=== PATIENT | male | born 2000 | race Caucasian/White ===

== ENCOUNTER → 2019-10-30 | Outpatient (CLI) | payer BC, OTHER ==
[~2019-10-30] MED LIST: AC500T PO; AMIT25TA9 PO; DCS100C PO; HYOS0.1217 PO; NAPR1TAB21 PO; ONDA8TAB6 PO; PNT40TEC PO; POLY17PO23 PO; SCR1T1 PO
--- NOTE | 2019-10-30 15:34 | Diagnostic Imaging Report ---
INDICATION: Rolled foot playing basketball eight days ago with continued pain and bruising. TECHNIQUE: 3 views of the left foot. CORRELATION STUDY: None. FINDINGS: There is a transverse, relatively nondisplaced fracture of the proximal fifth metatarsal. Alignment appears to be anatomic. Remaining osseous structures are otherwise intact. Patient has soft tissue swelling along the lateral aspect of foot. IMPRESSION: 1. Relatively nondisplaced tuberosity avulsion fracture at the base of the fifth metatarsal. Dictated by: Dictated on workstation # [id number]
== END ==
LOC: RAD 14:26
PROVIDERS: ATTEND Nurse Practitioner Family
DX: S92.355A Nondisplaced fracture of fifth metatarsal bone, left foot, initial encounter for closed fracture (principal); Y93.67 Activity, basketball; X58.XXXA Exposure to other specified factors, initial encounter
CPT/HCPCS: 73630

== ENCOUNTER 2021-05-03 21:20 | Emergency (ER) | payer BC ==
[~2021-05-03] VITALS: Ht 175.2 cm; Wt 67.8 kg
[2021-05-03] MEDS ORDERED: NS IV 1000 ML 1,000 ML IV SCH (22:15)
[2021-05-03 22:17] LABS: BILIRUBIN,URINE NEGATIVE (NEGATIVE); CLARITY,URINE CLEAR; COLOR,URINE YELLOW; GLUCOSE, URINE (UA) NEGATIVE (NEGATIVE); KETONES,URINE NEGATIVE (NEGATIVE); LEUKOCYTE ESTERASE ,URINE NEGATIVE (NEGATIVE); NITRITE,URINE NEGATIVE (NEGATIVE); PROTEIN,URINE NEGATIVE (NEGATIVE)
[2021-05-03 22:23] LABS: BASOPHILS # (AUTO) 0.1 10^3/uL (0.0-0.1); BASOPHILS % (AUTO) 1 % (0-10); EOSINOPHILS # (AUTO) 0.5 10^3/uL (0.0-0.3); EOSINOPHILS % (AUTO) 4 % (0-10); HEMATOCRIT 41 % (40-54); HEMOGLOBIN 14.7 g/dL (13.3-17.7); LYMPHOCYTES # (AUTO) 3.3 10^3/uL (1.0-4.0); LYMPHOCYTES % (AUTO) 26 % (12-44); MEAN CORPUSCULAR HEMOGLOBIN 31 pg (25-34); MEAN CORPUSCULAR HGB CONC 36 g/dL (32-36); MEAN CORPUSCULAR VOLUME 86 fL (80-99); MEAN PLATELET VOLUME 9.7 fL (9.0-12.2); MONOCYTES # (AUTO) 0.9 10^3/uL (0.0-1.0); MONOCYTES % (AUTO) 7 % (0-12); NEUTROPHILS # (AUTO) 8.2 10^3/uL (1.8-7.8); NEUTROPHILS % (AUTO) 63 % (42-75); PLATELET COUNT 299 10^3/uL (130-400)
--- NOTE | 2021-05-03 22:23 | ED Back Pain ---
General Chief Complaint: Back Problems Stated Complaint: LOWER BACK/LEGS SPASMS Nursing Triage Note: Pt ambulatory into ER with complaint of Leg Cramping/Lower Back Cramping x4 hours. Pt states that he was sitting watching football when it started. Denies recent trauma. Pt denies it being pain, but says its an annoying cramping. Pt denies having any other complaints. (LETHA HANDLEY) History of Present Illness Date Seen by Provider: May 03, 2021 Time Seen by Provider: 21:30 Initial Comments 20-year-old male presents with muscle spasms to his legs. Patient reports they have been present for approximately 4 hours. He worked until approximately 1400 today and then came home and was sitting watching football. He had approximately 5-6 beers and then when getting ready for bed he noticed shaking in his leg muscles. He denies pain at the present time. He had minimal water intake today, denies any illicit drug use or stimulants. He does not exercise regularly or participate in aggressive cardio work outs. Location: Other (upper legs) Timing/Duration: 1-3 Hours Pain/Injury Location: Lower Extremity Method of Injury: Unknown Associated Symptoms: muscle spasms; No weakness, No numbness in legs/feet, No tingling in legs/feet, No sensory/motor loss, No lower back pain, No loss of bladder control, No loss of bowel control (LETHA HANDLEY) Allergies and Home Medications Allergies Coded Allergies: No Known Drug Allergies (Unverified , 03/05/13) Patient Home Medication List Home Medication List Reviewed: Yes (LETHA HANDLEY) Amitriptyline Hcl (Elavil Tablet) 25 Mg Tab, 25 MG PO HS, (Reported) Entered as Reported by: TAE PETERSON on 07/30/14 1618 Hyoscyamine Sulfate (Hyoscyamine Sulfate 0.125 Mg) 0.125 Mg/Tab Tab.rapdis, 0.125 MG PO Q6H PRN for SPASMS Prescribed by: RENEE A COLTRIN on 06/14/13 1304 Pantoprazole Sodium (Protonix) 40 Mg Tablet.dr, 40 TAB PO BID Prescribed by: RENEE A COLTRIN on 06/14/13 1304 Polyethylene Glycol (Miralax 17 Gm Packet) 17 Gm Pack, 17 GM PO BID Prescribed by: RENEE A COLTRIN on 06/14/13 9371 Review of Systems Constitutional: no symptoms reported, see HPI Respiratory: no symptoms reported, see HPI Musculoskeletal: No back pain; muscle cramps, muscle twitching (LETHA HANDLEY) All Other Systems Reviewed Negative Unless Noted: Yes (LETHA HANDLEY) Past Thrcexq-Vpbfbj-Pkjlnc Hx Patient Social History Tobacco Use?: No Use of E-Cig and/or Vaping dev: Yes E-Cig or Vaping type used: Nicotine Use of E-Cig and/or Vaping Ajay: Current Everyday User Substance use?: No Alcohol Use?: Yes Alcohol type: Beer Alcohol Frequency: Daily Pt feels they are or have been: No (LETHA HANDLEY) Immunizations Up To Date Tetanus Booster (TDap): Less than 5yrs PED Vaccines UTD: Yes Influenza Vaccine Up-to-Date: No; Not Current (LETHA HANDLEY) Past Medical History Reproductive Disorders: No Sexually Transmitted Disease: No HIV/AIDS: No Kidney Stones Ulcer, Irritable Bowel Chronic Back Pain (LETHA HANDLEY) Family Medical History Reviewed Nursing Family Hx (LETHA HANDLEY) Chest pain 03 FATHER (CHEST PAIN) Family history: Cardiovascular disease 03 MOTHER (MITRAL VALVE PROLAPSE.) Family history: Gastrointestinal disease 09 BROTHER, Onset:Childhood (HERNIA REPAIR WHEN HE WAS 18 MONTHS. ) Seizure disorder 09 SISTER (SISTER HAD SEIZURE WHEN SHE WAS BORN. ) No Family History of: Addy's disease Alcoholism Aphasia Cancer Cancer of colon Cataract Congenital heart disease Congestive heart failure Cystic fibrosis Dementia Dysphagia Family history: Alzheimer's disease Family history: Arthritis Family history: Asthma Family history: Breast disease Family history: Coronary thrombosis Family history: Diabetes mellitus Family history: Glaucoma Family history: Hypertension Family history: Osteoporosis Family history: Thyroid disorder Headache Hearing loss Heart disease Hereditary disease History of - anemia History of - respiratory disease History of drug abuse Human immunodeficiency virus (HIV) seropositivity Hypercholesterolemia Infertile Kidney disease Myocardial infarction Parkinson's disease Prostate cancer Psychotic disorder Stroke Tuberculosis Visual impairment Heart Disease, Cancer (LETHA HANDLEY) Physical Exam Vital Signs Vital Signs - First Documented 05/03/21 21:24 Temp 36.7 Pulse 130 Resp 20 B/P (MAP) 156/104 (121) Pulse Ox 96 O2 Delivery Room Air (CHARLES,SABA K DO) Vital Signs Capillary Refill : Less Than 3 Seconds (LETHA HANDLEYP) Height, Weight, BMI Height: 5'7" Weight: 120lbs. 6.0oz. [id number]; 22.00 BMI Method: General Appearance: No Apparent Distress, WD/WN HEENT: PERRL/EOMI, TMs Normal, Normal ENT Inspection, Pharynx Normal Neck: Full Range of Motion, Normal Inspection, Non Tender, Supple Cardiovascular: Regular Rate, Rhythm, No Edema, No Murmur, Normal Peripheral Pulses Respiratory: Chest Non Tender, Lungs Clear, Normal Breath Sounds Gastrointestinal: Normal Bowel Sounds, Non Tender, Soft Back: Normal Inspection, No CVA Tenderness, No Vertebral Tenderness; No Muscle Spasm, No Vertebral Tenderness; Other (Full range of motion to the lumbar spine, power V/V L4-S1. Steady gait when ambulating. Muscle spasms when toe and heel walking.) Neurologic/Psychiatric: Alert, Oriented x3, No Motor/Sensory Deficits, Normal Mood/Affect Skin: Normal Color, Warm/Dry (EMMANUELLELETHA CRUZ) Progress/Results/Core Measures Results/Orders Lab Results Laboratory Tests Test 05/03/21 22:09 05/03/21 22:16 05/03/21 23:01 Range/Units Urine Color YELLOW Urine Clarity CLEAR Urine pH 6.0 5-9 Urine Specific [place] 1.010 L 1.016-1.022 Urine Protein NEGATIVE NEGATIVE Urine Glucose (UA) NEGATIVE NEGATIVE Urine Ketones NEGATIVE NEGATIVE Urine Nitrite NEGATIVE NEGATIVE Urine Bilirubin NEGATIVE NEGATIVE Urine Urobilinogen 0.2 < = 1.0 MG/DL Urine Leukocyte Esterase NEGATIVE NEGATIVE Urine RBC (Auto) TRACE-I H NEGATIVE Urine RBC NONE /HPF Urine WBC NONE /HPF Urine Squamous Epithelial Cells NONE /HPF Urine Renal Epithelial Cells NONE /HPF Urine Crystals NONE /LPF Urine Bacteria NEGATIVE /HPF Urine Casts NONE /LPF Urine Mucus NEGATIVE /LPF Urine Culture Indicated NO Urine Opiates Screen NEGATIVE NEGATIVE Urine Oxycodone Screen NEGATIVE NEGATIVE Urine Methadone Screen NEGATIVE NEGATIVE Urine Propoxyphene Screen NEGATIVE NEGATIVE Urine Barbiturates Screen NEGATIVE NEGATIVE Ur Tricyclic Antidepressants Screen NEGATIVE NEGATIVE Urine Phencyclidine Screen NEGATIVE NEGATIVE Urine Amphetamines Screen NEGATIVE NEGATIVE Urine Methamphetamines Screen NEGATIVE NEGATIVE Urine Benzodiazepines Screen NEGATIVE NEGATIVE Urine Cocaine Screen NEGATIVE NEGATIVE Urine Cannabinoids Screen NEGATIVE NEGATIVE White Blood Count 13.0 H 4.3-11.0 10^3/uL Red Blood Count 4.75 4.30-5.52 10^6/uL Hemoglobin 14.7 13.3-17.7 g/dL Hematocrit 41 40-54 % Mean Corpuscular Volume 86 80-99 fL Mean Corpuscular Hemoglobin 31 25-34 pg Mean Corpuscular Hemoglobin Concent 36 32-36 g/dL Red Cell Distribution Width 11.9 10.0-14.5 % Platelet Count 299 130-400 10^3/uL Mean Platelet Volume 9.7 9.0-12.2 fL Immature Granulocyte % (Auto) 0 % Neutrophils (%) (Auto) 63 42-75 % Lymphocytes (%) (Auto) 26 12-44 % Monocytes (%) (Auto) 7 0-12 % Eosinophils (%) (Auto) 4 0-10 % Basophils (%) (Auto) 1 0-10 % Neutrophils # (Auto) 8.2 H 1.8-7.8 10^3/uL Lymphocytes # (Auto) 3.3 1.0-4.0 10^3/uL Monocytes # (Auto) 0.9 0.0-1.0 10^3/uL Eosinophils # (Auto) 0.5 H 0.0-0.3 10^3/uL Basophils # (Auto) 0.1 0.0-0.1 10^3/uL Immature Granulocyte # (Auto) 0.0 0.0-0.1 10^3/uL Prothrombin Time 13.6 12.2-14.7 SEC INR Comment 1.0 0.8-1.4 Activated Partial Thromboplast Time 27 24-35 SEC Sodium Level 136 135-145 MMOL/L Potassium Level 3.7 3.6-5.0 MMOL/L Chloride Level 101 98-107 MMOL/L Carbon Dioxide Level 18 L 21-32 MMOL/L Anion Gap 17 H 5-14 MMOL/L Blood Urea Nitrogen 9 7-18 MG/DL Creatinine 0.86 0.60-1.30 MG/DL Estimat Glomerular Filtration Rate 111 BUN/Creatinine Ratio 10 Glucose Level 104 70-105 MG/DL Calcium Level 9.0 8.5-10.1 MG/DL Corrected Calcium 8.5-10.1 MG/DL Total Bilirubin 0.3 0.1-1.0 MG/DL Aspartate Amino Transf (AST/SGOT) 21 5-34 U/L Alanine Aminotransferase (ALT/SGPT) 15 0-55 U/L Alkaline Phosphatase 69 40-136 U/L Total Creatine Kinase 68 30-200 U/L Creatine Kinase MB 1.8 <6.6 NG/ML Myoglobin 39.0 10.0-92.0 NG/ML Total Protein 7.7 6.4-8.2 GM/DL Albumin 4.8 H 3.2-4.5 GM/DL Serum Alcohol 199 H <10 MG/DL TSH [place] Testing 3.55 0.35-4.94 UIU/ML (CHARLESSABA Valverde ) Vital Signs/I&O 05/03/21 05/03/21 21:24 23:52 Temp 36.7 Pulse 130 73 Resp 20 18 B/P (MAP) 156/104 (121) 120/76 Pulse Ox 96 99 O2 Delivery Room Air Room Air (SABA SOTO DO) Blood Pressure Mean: 121 Progress Progress Note : Time: 21:30 Progress Note Patient seen and evaluated, will obtain labs, normal saline 1 L per IV. 2229 discussed lab results. long counseling session with patient and agreeable to his father remaining in the room. Blood Alcohol 2.5 times above the legal limit. Patient admits to drinking alcohol daily, blacks out approx 1 time a week. Has issues in relationship, related to alcohol. Has never been abusive and maintains employment. Is engaged and has 18 month old daughter. Reports his mom was killed in MVA, May 2020, has made drinking a daily occurrence, since then. Does not feel he is addicted to drinking and only drinks beer, but can't remember the last night he hasn't had beer. Reports 1-2 leading to 5-6 or more. Discussed Rehab, inpatient/outpatient and AA. He will discuss with his dad and fiance, since acutely intoxicated tonight, he needs to make these decisions when sober. Drank 2 glasses of pedialyte. All questions answered and support carlito bergman. Discussed addictions and not stopping, without medical monitoring or he could have seizures and other withdrawal effects. Father will drive him home. Muscle cramping has improved. Ambulated to bathroom, no cramping and steady gait. D/C instructions and return precautions reviewed. (LETHA HANDLEY) Departure Impression Primary Impression: Muscle spasms of both lower extremities Additional Impressions: Acute alcohol intoxication Qualified Codes: F10.920 - Alcohol use, unspecified with intoxication, uncomplicated Alcohol addiction Qualified Codes: F10.29 - Alcohol dependence with unspecified alcohol- induced disorder Disposition: 01 HOME, SELF-CARE Condition: Stable Departure-Patient Inst. Decision time for Depature: 23:00 (LETHA HANDLEY) Referrals: DERIAN JANE DO (PCP/Family) Primary Care Physician Patient Instructions: Alcohol Use Disorder (DC), Alcohol Withdrawal (DC) Add. Discharge Instructions: Consider AA or inpatient alcohol rehab. AA options in [place] and through [facility]. Increase water intake, slowly cut back on alcohol consumption, abrupt withdrawal will have side effects. Follow up with your Primary Care Provider. Do NOT drive a car, when consuming alcohol. Return to Emergency Dept for new, urgent healthcare needs. All discharge instructions reviewed with patient and/or family. Voiced understanding. ATTENDING PHYSICIAN NOTE: I WAS PHYSICALLY PRESENT ER PHYSICIAN WHEN THIS PATIENT WAS IN ER, BUT I WAS NOT INVOLVED IN ANY DECISION MAKING OR ANY CARE OF THIS PATIENT. (SABA SOTO DO) Copy Copies To 1: DERIAN JANE AMY ARNP May 03, 2021 22:23 SABA SOTO DO May 08, 2021 05:30
[2021-05-03 22:26] LABS: BACTERIA,URINE NEGATIVE /HPF
[2021-05-03 22:31] LABS: AMPHETAMINE SCREEN, URINE NEGATIVE (NEGATIVE); BARBITURATE SCREEN URINE NEGATIVE (NEGATIVE); BENZODIAZEPINES SCREEN URINE NEGATIVE (NEGATIVE); CANNABINOID SCREEN, URINE NEGATIVE (NEGATIVE); COCAINE SCREEN URINE NEGATIVE (NEGATIVE); METHADONE STAT NEGATIVE (NEGATIVE); METHAMPHETAMINE SCREEN URINE S NEGATIVE (NEGATIVE); OPIATE SCREEN URINE NEGATIVE (NEGATIVE); OXYCODONE STAT NEGATIVE (NEGATIVE); PROPOXYPHENE STAT NEGATIVE (NEGATIVE); TRICYCLIC ANTIDEPRESSANTS SCRE NEGATIVE (NEGATIVE)
[2021-05-03 22:38] LABS: ALBUMIN 4.8 GM/DL (3.2-4.5); CHLORIDE 101 MMOL/L (98-107); POTASSIUM 3.7 MMOL/L (3.6-5.0); SODIUM 136 MMOL/L (135-145)
[2021-05-03 22:39] LABS: PROTHROMBIN TIME PATIENT 13.6 SEC (12.2-14.7)
[2021-05-03 22:40] LABS: GLUCOSE 104 MG/DL (70-105)
[2021-05-03 22:41] LABS: CARBON DIOXIDE 18 MMOL/L (21-32); TOTAL PROTEIN 7.7 GM/DL (6.4-8.2)
[2021-05-03 22:42] LABS: BILIRUBIN,TOTAL 0.3 MG/DL (0.1-1.0)
[2021-05-03 22:44] LABS: ALKALINE PHOSPHATASE 69 U/L (40-136); CREATININE SERUM 0.86 MG/DL (0.60-1.30); GFR ESTIMATED 111
[2021-05-03 22:45] LABS: BUN/CREATININE RATIO 10
[2021-05-03 22:47] LABS: ALANINE AMINOTRANSFERASE 15 U/L (0-55); CREATINE KINASE 68 U/L (30-200)
[2021-05-03 22:54] LABS: CREATINE KINASE MB 1.8 NG/ML (<6.6)
[2021-05-03 23:52] VITALS: BP 120/76
== END 2021-05-03 23:50 | disposition home or self-care (01) ==
LOC: EDUNIT# 21:20 → ER 21:21
DX: M62.838 Other muscle spasm (principal); F10.229 Alcohol dependence with intoxication, unspecified; F17.200 Nicotine dependence, unspecified, uncomplicated
CPT/HCPCS: 80053; 80306; 81000; 82550; 82553; 83874; 84443; 85025; 85610; 85730; 93005; 99284; G0480; 36415; 80320

== ENCOUNTER 2021-11-15 18:28 | Emergency (ER) | payer BC ==
[~2021-11-15] VITALS: Ht 175.2 cm; Wt 77.1 kg
[2021-11-15 18:35] VITALS: BP 141/87
[2021-11-15] MEDS ORDERED: NS IV 1000 ML 1,000 ML IV STA (18:45)
[2021-11-15] MEDS ORDERED: morphine INJ 10 MG/ML 1ML (SYR OR VIAL) IV STA (18:45)
[2021-11-15] MEDS ORDERED: ASPIRIN 81 MG CHEW (CHILDREN'S ASA) PO ONE (18:45)
--- NOTE | 2021-11-15 18:50 | ED Chest Pain ---
General Stated Complaint: CP/SHAKY Source: patient Exam Limitations: no limitations History of Present Illness Date Seen by Provider: November 15, 2021 Time Seen by Provider: 18:48 Initial Comments Patient is a 21-year-old male who presents ED with left sided chest pain. Described as sharp started around 9-10 o'clock this morning. Denies of any radiation. Pain has been constant rates 6 out of 10. Denies history of similar symptoms in past. Daily drinker but did drink several beverages of alcohol beverages last night. Drinks 6-10 beverages (beer) daily. Patient with history of mild tremoring in the past. He did vomit today. He has associated shortness of breath without cough. No abdominal pain. No worsening pain with eating. D enies any recent travels, surgeries, leg swelling, family history of sudden cardiac . Denies headache, dizziness, fever, chills, body aches. Patient has some mild tenderness on palpation of the chest. No worsening pain with deep inspiration. Denies of any recent URI symptoms Allergies and Home Medications Allergies Coded Allergies: No Known Drug Allergies (Unverified , 03/05/13) Patient Home Medication List Home Medication List Reviewed: Yes Amitriptyline Hcl (Elavil Tablet) 25 Mg Tab, 25 MG PO HS, (Reported) Entered as Reported by: TAE PETERSON on 07/30/14 1618 Hyoscyamine Sulfate (Hyoscyamine Sulfate 0.125 Mg) 0.125 Mg/Tab Tab.rapdis, 0.125 MG PO Q6H PRN for SPASMS Prescribed by: RENEE A COLTRIN on 06/14/13 1304 Pantoprazole Sodium (Protonix) 40 Mg Tablet.dr, 40 TAB PO BID Prescribed by: RENEE A COLTRIN on 06/14/13 1304 Polyethylene Glycol (Miralax 17 Gm Packet) 17 Gm Pack, 17 GM PO BID Prescribed by: RENEE A COLTRIN on 06/14/13 1304 Review of Systems Review of Systems Constitutional: No chills, No diaphoresis EENTM: No Double Vision, No Eye Pain Respiratory: Denies Cough; Shortness of Air Cardiovascular: Chest Pain Gastrointestinal: Denies Abdomen Distended, Denies Abdominal Pain, Denies Diarrhea, Denies Nausea, Denies Vomiting Genitourinary: Denies Burning, Denies Discharge Musculoskeletal: No back pain, No joint pain Skin: No change in color, No change in hair/nails All Other Systems Reviewed Negative Unless Noted: Yes Past Sxkcgki-Mxprgr-Vawvwd Hx Immunizations Up To Date Tetanus Booster (TDap): Less than 5yrs PED Vaccines UTD: Yes Past Medical History Reproductive Disorders: No Sexually Transmitted Disease: No HIV/AIDS: No Kidney Stones Ulcer, Irritable Bowel Chronic Back Pain Family Medical History Chest pain 03 FATHER (CHEST PAIN) Family history: Cardiovascular disease 03 MOTHER (MITRAL VALVE PROLAPSE.) Family history: Gastrointestinal disease 09 BROTHER, Onset:Childhood (HERNIA REPAIR WHEN HE WAS 18 MONTHS. ) Seizure disorder 09 SISTER (SISTER HAD SEIZURE WHEN SHE WAS BORN. ) No Family History of: Westbrook's disease Alcoholism Aphasia Cancer Cancer of colon Cataract Congenital heart disease Congestive heart failure Cystic fibrosis Dementia Dysphagia Family history: Alzheimer's disease Family history: Arthritis Family history: Asthma Family history: Breast disease Family history: Coronary thrombosis Family history: Diabetes mellitus Family history: Glaucoma Family history: Hypertension Family history: Osteoporosis Family history: Thyroid disorder Headache Hearing loss Heart disease Hereditary disease History of - anemia History of - respiratory disease History of drug abuse Human immunodeficiency virus (HIV) seropositivity Hypercholesterolemia Infertile Kidney disease Myocardial infarction Parkinson's disease Prostate cancer Psychotic disorder Stroke Tuberculosis Visual impairment Heart Disease, Cancer Physical Exam Vital Signs Vital Signs - First Documented 11/15/21 18:35 Temp 36.6 Pulse 98 Resp 20 B/P (MAP) 141/87 (105) Pulse Ox 98 O2 Delivery Room Air Capillary Refill : Height, Weight, BMI Height: 5'7" Weight: 120lbs. 6.0oz. 54.978337ml; 22.00 BMI Method: General Appearance: WD/WN, Mild Distress HEENT: PERRL/EOMI, TMs Normal, Normal ENT Inspection, Pharynx Normal Neck: Full Range of Motion, Normal Inspection, Non Tender, Supple Respiratory: Lungs Clear, Normal Breath Sounds, No Accessory Muscle Use, No Respiratory Distress, Other (Mild tenderness to the left lower anterior chest below the nipple line.) Cardiovascular: Regular Rate, Rhythm, No Edema, No Gallop, No JVD Gastrointestinal: Normal Bowel Sounds, No Organomegaly, No Pulsatile Mass, Non Tender Extremity: Normal Capillary Refill, Normal Inspection, Normal Range of Motion Neurologic/Psychiatric: Alert, Oriented x3, No Motor/Sensory Deficits, Normal Mood/Affect, cardiac monitor II-XII Norm as Tested Skin: Normal Color, Warm/Dry Progress/Results/Core Measures Results/Orders Lab Results Laboratory Tests Test 11/15/21 18:45 11/15/21 21:22 Range/Units White Blood Count 11.1 H 4.3-11.0 10^3/uL Red Blood Count 4.85 4.30-5.52 10^6/uL Hemoglobin 15.0 13.3-17.7 g/dL Hematocrit 42 40-54 % Mean Corpuscular Volume 87 80-99 fL Mean Corpuscular Hemoglobin 31 25-34 pg Mean Corpuscular Hemoglobin Concent 36 32-36 g/dL Red Cell Distribution Width 12.3 10.0-14.5 % Platelet Count 335 130-400 10^3/uL Mean Platelet Volume 9.5 9.0-12.2 fL Immature Granulocyte % (Auto) 0 % Neutrophils (%) (Auto) 71 42-75 % Lymphocytes (%) (Auto) 18 12-44 % Monocytes (%) (Auto) 10 0-12 % Eosinophils (%) (Auto) 1 0-10 % Basophils (%) (Auto) 1 0-10 % Neutrophils # (Auto) 7.9 H 1.8-7.8 10^3/uL Lymphocytes # (Auto) 2.0 1.0-4.0 10^3/uL Monocytes # (Auto) 1.1 H 0.0-1.0 10^3/uL Eosinophils # (Auto) 0.1 0.0-0.3 10^3/uL Basophils # (Auto) 0.1 0.0-0.1 10^3/uL Immature Granulocyte # (Auto) 0.0 0.0-0.1 10^3/uL Prothrombin Time 13.7 12.2-14.7 SEC INR Comment 1.0 0.8-1.4 Activated Partial Thromboplast Time 32 24-35 SEC D-Dimer 3.48 H 0.00-0.49 UG/ML Sodium Level 138 135-145 MMOL/L Potassium Level 4.8 3.6-5.0 MMOL/L Chloride Level 100 98-107 MMOL/L Carbon Dioxide Level 23 21-32 MMOL/L Anion Gap 15 H 5-14 MMOL/L Blood Urea Nitrogen 13 7-18 MG/DL Creatinine 0.77 0.60-1.30 MG/DL Estimat Glomerular Filtration Rate 129 BUN/Creatinine Ratio 17 Glucose Level 139 H 70-105 MG/DL Calcium Level 9.8 8.5-10.1 MG/DL Corrected Calcium 8.5-10.1 MG/DL Magnesium Level 2.1 1.6-2.4 MG/DL Total Bilirubin 0.6 0.1-1.0 MG/DL Aspartate Amino Transf (AST/SGOT) 30 5-34 U/L Alanine Aminotransferase (ALT/SGPT) 24 0-55 U/L Alkaline Phosphatase 75 40-136 U/L Myoglobin 36.6 10.0-92.0 NG/ML Troponin I < 0.028 <0.028 NG/ML Total Protein 8.2 6.4-8.2 GM/DL Albumin 5.2 H 3.2-4.5 GM/DL Lipase 12 8-78 U/L Urine Opiates Screen POSITIVE H NEGATIVE Urine Oxycodone Screen NEGATIVE NEGATIVE Urine Methadone Screen NEGATIVE NEGATIVE Urine Propoxyphene Screen NEGATIVE NEGATIVE Urine Barbiturates Screen NEGATIVE NEGATIVE Ur Tricyclic Antidepressants Screen NEGATIVE NEGATIVE Urine Phencyclidine Screen NEGATIVE NEGATIVE Urine Amphetamines Screen NEGATIVE NEGATIVE Urine Methamphetamines Screen NEGATIVE NEGATIVE Urine Benzodiazepines Screen NEGATIVE NEGATIVE Urine Cocaine Screen NEGATIVE NEGATIVE Urine Cannabinoids Screen NEGATIVE NEGATIVE My Orders Orders - MECCA VITALE PA Ekg Tracing (11/15/21 18:32) Cbc With Automated Diff (11/15/21 18:45) Magnesium (11/15/21 18:45) Chest 1 View, Ap/Pa Only (11/15/21 18:45) Ekg Tracing (11/15/21 18:45) Comprehensive Metabolic Panel (11/15/21 18:45) Myoglobin Serum (11/15/21 18:45) Protime With Inr (11/15/21 18:45) Partial Thromboplastin Time (11/15/21 18:45) O2 (11/15/21 18:45) Ed Iv/Invasive Line Start (11/15/21 18:45) Lipase (11/15/21 18:45) Fibrin Degradation Products (11/15/21 18:45) Troponin I Arvin (11/15/21 18:45) Aspirin Chewable Tablet (Baby Aspirin Ch (11/15/21 18:45) Morphine Injection (Morphine Injection (11/15/21 18:45) Ns Iv 1000 Ml (Sodium Chloride 0.9%) (11/15/21 18:45) Drug Screen Stat (Urine) (11/15/21 18:47) Ct Angio Chest W (11/15/21 19:54) Iohexol Injection (Omnipaque 350 Mg/Ml 1 (11/15/21 20:15) Received Contrast (Hold Metformin- Contr (11/15/21 20:15) Ns (Ivpb) (Sodium Chloride 0.9% Ivpb Bag (11/15/21 20:15) Ketorolac Injection (Toradol Injection) (11/15/21 22:00) Medications Given in ED Current Medications Medications Dose Ordered Sig/Chase Route Start Time Stop Time Status Last Admin Dose Admin Aspirin 324 mg ONCE ONCE PO 11/15/21 18:45 11/15/21 19:06 DC 11/15/21 19:10 324 MG Iohexol 100 ml ONCE ONCE IV 11/15/21 20:15 11/15/21 20:16 DC 11/15/21 20:13 76 ML Sodium Chloride 100 ml ONCE ONCE IV 11/15/21 20:15 11/15/21 20:16 DC 11/15/21 20:13 80 ML Vital Signs/I&O 11/15/21 18:35 Temp 36.6 Pulse 98 Resp 20 B/P (MAP) 141/87 (105) Pulse Ox 98 O2 Delivery Room Air Comment Sinus rhythm with sinus arrhythmia, 84 bpm, QRS duration 86 MS, QTC 388 ms Departure Communication (PCP) Patient with a history of EtOH abuse. Patient states he drinks 6-8 beers daily. Mild shakes with left-sided chest pain. EKG shows sinus rhythm with sinus arrhythmia. Initially on arrival he was tachycardic and reports shortness of breath. No family history of sudden cardiac . Patient troponin negative but elevated D-dimer 3.80. CT angio chest was negative for PE, pneumothorax, pneumonia. Patient lab work was otherwise reassuring. Patient was given Toradol and a liter of fluid with improvement of his pain. EKG without diffuse ST elevation suggesting pericarditis. No abnormal arrhythmia. Low risk for coronary artery disease. Denies any trauma. Did vomit today. Symptoms may be secondary to his alcohol. He denies drinking today. Denies history of withdrawal seizures or withdrawal from alcohol. Denies history of similar symptoms. Discussed all results with patient. Due to low heart score and currently asymptomatic patient can be follow-up outpatient . He has no epigastric or right upper quadrant tenderness suggesting acute cholecystitis or pancreatitis. Normal lipase, liver enzymes and bilirubin. Pain appears to be located left side of his ribs. Does have some mild tenderness suggesting possible pleurisy versus costochondritis however he has no pain with deep inspiration. Recommend continue monitoring his symptoms. If worsening chest pain to return back to ED. May consider outpatient follow-up with PCP for further evaluation. Did offer resources for alcohol detox outpatient [place]. If any worsening symptoms return back to ED for further evaluation.. Impression Primary Impression: Chest pain Disposition: HOME, SELF-CARE Condition: Stable Departure-Patient Inst. Decision time for Depature: 21:47 Referrals: DERIAN JANE DO (PCP/Family) Primary Care Physician Patient Instructions: Chest Pain, Adult ED Work/School Note: Work Release Form Date Seen in the Emergency Department: November 15, 2021 Return to Work: November 17, 2021 MECCA VITALE November 15, 2021 18:50
[2021-11-15 18:55] LABS: BASOPHILS # (AUTO) 0.1 10^3/uL (0.0-0.1); BASOPHILS % (AUTO) 1 % (0-10); EOSINOPHILS # (AUTO) 0.1 10^3/uL (0.0-0.3); EOSINOPHILS % (AUTO) 1 % (0-10); HEMATOCRIT 42 % (40-54); LYMPHOCYTES % (AUTO) 18 % (12-44); MEAN CORPUSCULAR HEMOGLOBIN 31 pg (25-34); MEAN CORPUSCULAR HGB CONC 36 g/dL (32-36); MEAN CORPUSCULAR VOLUME 87 fL (80-99); MEAN PLATELET VOLUME 9.5 fL (9.0-12.2); MONOCYTES # (AUTO) 1.1 10^3/uL (0.0-1.0); MONOCYTES % (AUTO) 10 % (0-12); NEUTROPHILS # (AUTO) 7.9 10^3/uL (1.8-7.8); NEUTROPHILS % (AUTO) 71 % (42-75); PLATELET COUNT 335 10^3/uL (130-400); WHITE BLOOD COUNT 11.1 10^3/uL (4.3-11.0)
[2021-11-15 19:06] LABS: ALBUMIN 5.2 GM/DL (3.2-4.5); CHLORIDE 100 MMOL/L (98-107); POTASSIUM 4.8 MMOL/L (3.6-5.0); SODIUM 138 MMOL/L (135-145)
[2021-11-15 19:07] LABS: CALCIUM 9.8 MG/DL (8.5-10.1)
[2021-11-15 19:09] LABS: GLUCOSE 139 MG/DL (70-105); TOTAL PROTEIN 8.2 GM/DL (6.4-8.2)
[2021-11-15 19:10] LABS: CARBON DIOXIDE 23 MMOL/L (21-32)
[2021-11-15 19:11] LABS: BILIRUBIN,TOTAL 0.6 MG/DL (0.1-1.0)
[2021-11-15 19:12] LABS: ALKALINE PHOSPHATASE 75 U/L (40-136)
[2021-11-15 19:13] LABS: CREATININE SERUM 0.77 MG/DL (0.60-1.30); GFR ESTIMATED 129
[2021-11-15 19:14] LABS: BUN/CREATININE RATIO 17
[2021-11-15 19:15] LABS: ALANINE AMINOTRANSFERASE 24 U/L (0-55); MAGNESIUM 2.1 MG/DL (1.6-2.4)
[2021-11-15 19:16] LABS: LIPASE 12 U/L (8-78); PROTHROMBIN TIME PATIENT 13.7 SEC (12.2-14.7)
--- NOTE | 2021-11-15 19:28 | Diagnostic Imaging Report ---
EXAMINATION: Chest 1 view. HISTORY: Chest pain. COMPARISON: None available. FINDINGS: Heart size and pulmonary vasculature are normal. The lungs are clear without consolidation, pleural effusion or pneumothorax. The osseous structures are intact. Multiple small radiopacities overlying the left shoulder and axilla. IMPRESSION: 1. No acute radiographic abnormality in the chest. 2. Multiple radiopacities overlying the left shoulder and axilla. Dictated by: Dictated on workstation # [id number]
[2021-11-15] MEDS ORDERED: IOHEXOL 350 MG/ML 100 ML (OMNIPAQUE 350) VIAL IV ONE (20:15)
[2021-11-15] MEDS ORDERED: HOLD METFORMIN - RECEIVED CONTRAST 20 ML VIAL IV SCH (20:15)
[2021-11-15] MEDS ORDERED: NS 100 ML (IVPB) BAG IV ONE (20:15)
--- NOTE | 2021-11-15 20:42 | Diagnostic Imaging Report ---
EXAMINATION: CT angiography of the chest. TECHNIQUE: Contrast enhanced thin section helical images were obtained through the chest with intravenous contrast timed for the optimal opacification of the arterial structures per CTA protocol. Post-processing, reconstructions and interpretation of angiographic images of the vessels was performed. 3D MIP reconstructions were performed and reviewed. All CT scans use one or more of the following dose optimizing techniques: automated exposure control, MA and/or KvP adjustment based on patient size and exam type or iterative reconstruction. HISTORY: Left side chest pain. COMPARISON: None available. FINDINGS: Vascular: No filling defects within the pulmonary arteries. Thoracic aorta is normal in caliber. Thyroid: The thyroid is normal. Mediastinum: Heart size is normal without significant pericardial effusion. No suspicious lymphadenopathy. Lungs and airways: The lungs are clear without consolidation, pleural effusion or pneumothorax. The airways are normal. Upper abdomen: The subphrenic structures are normal. Musculoskeletal: No suspicious osseous lesion or compression fracture. IMPRESSION: No findings of pulmonary embolus or other acute abnormality in the chest. Dictated by: Dictated on workstation # [id number]
[2021-11-15 21:36] LABS: AMPHETAMINE SCREEN, URINE NEGATIVE (NEGATIVE); BARBITURATE SCREEN URINE NEGATIVE (NEGATIVE); BENZODIAZEPINES SCREEN URINE NEGATIVE (NEGATIVE); CANNABINOID SCREEN, URINE NEGATIVE (NEGATIVE); COCAINE SCREEN URINE NEGATIVE (NEGATIVE); METHADONE STAT NEGATIVE (NEGATIVE); OPIATE SCREEN URINE POSITIVE (NEGATIVE); OXYCODONE STAT NEGATIVE (NEGATIVE); PROPOXYPHENE STAT NEGATIVE (NEGATIVE); TRICYCLIC ANTIDEPRESSANTS SCRE NEGATIVE (NEGATIVE)
[2021-11-15] MEDS ORDERED: KETOROLAC 30 MG/ML VIAL IVP ONE (22:00)
== END 2021-11-15 21:58 | disposition home or self-care (01) ==
LOC: EDUNIT# 18:28 → ER 18:29
DX: R07.89 Other chest pain (principal); I49.8 Other specified cardiac arrhythmias; F10.20 Alcohol dependence, uncomplicated; R79.89 Other specified abnormal findings of blood chemistry
CPT/HCPCS: 36415; 71045; 71275; 80053; 80306; 83690; 83735; 83874; 84484; 85025; 85379; 85610; 85730; 93005

== ENCOUNTER 2022-11-22 22:55 | Emergency (ER) | payer BC ==
[~2022-11-22] VITALS: Ht 175.3 cm; Wt 77.1 kg
--- NOTE | 2022-11-22 23:12 | ED Chest Pain ---
General Chief Complaint: Chest Wall Stated Complaint: CHEST PAIN/SOA Nursing Triage Note: PT AMB TO RM 3 W C/O CHEST DISCOMFORT AND SOA SX 1200 TODAY. PT A&OX4. Source: patient, old records Exam Limitations: no limitations History of Present Illness Date Seen by Provider: November 22, 2022 Time Seen by Provider: 22:59 Initial Comments This 22-year-old gentleman presents to the emergency room with complaints of a vague chest discomfort and palpitations described as "pounding heart. Symptoms started around noon. He states difficulty sleeping tonight. He would wake up with a gasp leg sensation. He was seen for something similar about a year ago. At that time he was drinking heavily on a daily basis. He now only drinks heavily on the weekends. He did drink heavily yesterday. He denies any cough or fever. He did vomit twice this morning. Allergies and Home Medications Allergies Coded Allergies: No Known Drug Allergies (Unverified , 03/05/13) Patient Home Medication List Home Medication List Reviewed: Yes Amitriptyline Hcl (Elavil Tablet) 25 Mg Tab, 25 MG PO HS, (Reported) Entered as Reported by: TAE PETERSON on 07/30/14 1618 Hyoscyamine Sulfate (Hyoscyamine Sulfate 0.125 Mg) 0.125 Mg/Tab Tab.rapdis, 0.125 MG PO Q6H PRN for SPASMS Prescribed by: RENEE BECKFORD on 06/14/13 1304 Pantoprazole Sodium (Protonix) 40 Mg Tablet.dr, 40 TAB PO BID Prescribed by: RENEE ORDAZTRIN on 06/14/13 1304 Polyethylene Glycol (Miralax 17 Gm Packet) 17 Gm Pack, 17 GM PO BID Prescribed by: RENEE Delacruz COLTRIN on 06/14/13 1304 Review of Systems Review of Systems Constitutional: no symptoms reported EENTM: No Symptoms Reported Respiratory: No Symptoms Reported Cardiovascular: See HPI Gastrointestinal: See HPI Genitourinary: No Symptoms Reported Musculoskeletal: no symptoms reported Skin: no symptoms reported Psychiatric/Neurological: See HPI Endocrine: No Symptoms Reported Hematologic/Lymphatic: No Symptoms Reported Past Yogrwlx-Uxkxxv-Kapznu Hx Patient Social History Tobacco Use?: No Use of E-Cig and/or Vaping dev: Yes E-Cig or Vaping type used: Nicotine Use of E-Cig and/or Vaping Ajay: Current Everyday User Substance use?: No Alcohol Use?: Yes Alcohol Frequency: Several times a month Immunizations Up To Date Tetanus Booster (TDap): Less than 5yrs PED Vaccines UTD: Yes Influenza Vaccine Up-to-Date: No; Not Current First/Initial COVID19 Vaccinat: NONE Second COVID19 Vaccination Baldemar: NONE Third COVID19 Vaccination Date: NONE COVID19 Vaccine Cardiac Cath Technologist: NONE Past Medical History Surgeries: No Respiratory: No Cardiac: No Neurological: No Reproductive Disorders: No Sexually Transmitted Disease: No HIV/AIDS: No Genitourinary: Yes Kidney Stones Gastrointestinal: No Ulcer, Irritable Bowel Musculoskeletal: Yes Chronic Back Pain Endocrine: No HEENT: No Cancer: No Psychosocial: No Family Medical History Chest pain 03 FATHER (CHEST PAIN) Family history: Cardiovascular disease 03 MOTHER (MITRAL VALVE PROLAPSE.) Family history: Gastrointestinal disease 09 BROTHER, Onset:Childhood (HERNIA REPAIR WHEN HE WAS 18 MONTHS. ) Seizure disorder 09 SISTER (SISTER HAD SEIZURE WHEN SHE WAS BORN. ) No Family History of: Forrest's disease Alcoholism Aphasia Cancer Cancer of colon Cataract Congenital heart disease Congestive heart failure Cystic fibrosis Dementia Dysphagia Family history: Alzheimer's disease Family history: Arthritis Family history: Asthma Family history: Breast disease Family history: Coronary thrombosis Family history: Diabetes mellitus Family history: Glaucoma Family history: Hypertension Family history: Osteoporosis Family history: Thyroid disorder Headache Hearing loss Heart disease Hereditary disease History of - anemia History of - respiratory disease History of drug abuse Human immunodeficiency virus (HIV) seropositivity Hypercholesterolemia Infertile Kidney disease Myocardial infarction Parkinson's disease Prostate cancer Psychotic disorder Stroke Tuberculosis Visual impairment Heart Disease, Cancer Physical Exam Vital Signs Vital Signs - First Documented 11/22/22 22:58 Temp 36.6 Pulse 78 Resp 20 B/P (MAP) 151/96 (114) Pulse Ox 100 O2 Delivery Room Air Capillary Refill : Less Than 3 Seconds Height, Weight, BMI Height: 5'7" Weight: 120lbs. 6.0oz. 54.809625pb; 25.00 BMI Method: General Appearance: No Apparent Distress, WD/WN, Thin HEENT: PERRL/EOMI, Normal ENT Inspection Neck: Normal Inspection; No JVD Respiratory: Chest Non Tender, Lungs Clear, Normal Breath Sounds, No Accessory Muscle Use Cardiovascular: Regular Rate, Rhythm, No Edema, No Murmur, Other (Normal sinus rhythm on monitoring tech by my interpretation) Gastrointestinal: Non Tender, Soft; No Distended Extremity: Normal Inspection, No Pedal Edema, Calf Tenderness (Right mid calf) Neurologic/Psychiatric: Alert, Oriented x3, No Motor/Sensory Deficits, Normal Mood/Affect Skin: Normal Color, Warm/Dry Progress/Results/Core Measures Results/Orders Lab Results Laboratory Tests Test 11/22/22 23:00 Range/Units White Blood Count 10.4 4.3-11.0 10^3/uL Red Blood Count 4.99 4.30-5.52 10^6/uL Hemoglobin 15.2 13.3-17.7 g/dL Hematocrit 43 40-54 % Mean Corpuscular Volume 86 80-99 fL Mean Corpuscular Hemoglobin 31 25-34 pg Mean Corpuscular Hemoglobin Concent 35 32-36 g/dL Red Cell Distribution Width 12.3 10.0-14.5 % Platelet Count 306 130-400 10^3/uL Mean Platelet Volume 9.9 9.0-12.2 fL Immature Granulocyte % (Auto) 0 % Neutrophils (%) (Auto) 61 42-75 % Lymphocytes (%) (Auto) 26 12-44 % Monocytes (%) (Auto) 10 0-12 % Eosinophils (%) (Auto) 3 0-10 % Basophils (%) (Auto) 1 0-10 % Neutrophils # (Auto) 6.3 1.8-7.8 10^3/uL Lymphocytes # (Auto) 2.7 1.0-4.0 10^3/uL Monocytes # (Auto) 1.0 0.0-1.0 10^3/uL Eosinophils # (Auto) 0.3 0.0-0.3 10^3/uL Basophils # (Auto) 0.1 0.0-0.1 10^3/uL Immature Granulocyte # (Auto) 0.0 0.0-0.1 10^3/uL Prothrombin Time 13.4 12.2-14.7 SEC INR Comment 1.0 0.8-1.4 Activated Partial Thromboplast Time 28 24-35 SEC D-Dimer < 0.27 0.00-0.49 UG/ML Sodium Level 139 135-145 MMOL/L Potassium Level 3.9 3.6-5.0 MMOL/L Chloride Level 101 98-107 MMOL/L Carbon Dioxide Level 23 21-32 MMOL/L Anion Gap 15 H 5-14 MMOL/L Blood Urea Nitrogen 7 7-18 MG/DL Creatinine 0.78 0.60-1.30 MG/DL Estimat Glomerular Filtration Rate 128 BUN/Creatinine Ratio 9 Glucose Level 84 70-105 MG/DL Calcium Level 10.1 8.5-10.1 MG/DL Corrected Calcium 8.5-10.1 MG/DL Magnesium Level 2.0 1.6-2.4 MG/DL Total Bilirubin 0.7 0.1-1.0 MG/DL Aspartate Amino Transf (AST/SGOT) 25 5-34 U/L Alanine Aminotransferase (ALT/SGPT) 18 0-55 U/L Alkaline Phosphatase 67 40-136 U/L Myoglobin 28.6 10.0-92.0 NG/ML Troponin I < 0.028 <0.028 NG/ML Total Protein 8.1 6.4-8.2 GM/DL Albumin 5.1 H 3.2-4.5 GM/DL Serum Alcohol < 10 <10 MG/DL My Orders Orders - MELISSA WHEATLEY MD Cbc With Automated Diff (11/22/22 23:08) Magnesium (11/22/22 23:08) Chest 1 View, Ap/Pa Only (11/22/22 23:08) Ekg Tracing (11/22/22 23:08) Comprehensive Metabolic Panel (11/22/22 23:08) Myoglobin Serum (11/22/22 23:08) Protime With Inr (11/22/22 23:08) Partial Thromboplastin Time (11/22/22 23:08) Monitor-Rhythm Ecg Trace Only (11/22/22 23:08) Ed Iv/Invasive Line Start (11/22/22 23:08) Fibrin Degradation Products (11/22/22 23:08) Troponin I Frontier (11/22/22 23:08) Alcohol (11/22/22 23:08) Vital Signs/I&O 11/22/22 11/23/22 22:58 00:06 Temp 36.6 Pulse 78 56 Resp 20 18 B/P (MAP) 151/96 (114) 121/96 Pulse Ox 100 100 O2 Delivery Room Air Room Air Blood Pressure Mean: 114 Progress Progress Note : Progress Note Patient's exam was grossly unremarkable. He did note some mild tenderness in the right mid calf. Labs were obtained including CBC, CMP, troponin, serum alcohol, and D-dimer. These were all reviewed and interpreted by me as unremarkable. EKG was interpreted as normal. Chest x-ray was also reviewed and interpreted by me is unremarkable. Radiologist's report not yet available. Initial ECG Impression Date: November 22, 2022 Initial ECG Impression Time: 23:02 Initial ECG Rate: 73 Initial ECG Rhythm: Normal Sinus Initial ECG Intervals: Normal Initial ECG Impression: Normal Comment Sinus rhythm with variable rate. No ST elevation or depression. No abnormal intervals or axis deviation. Able rate likely secondary to respiratory pattern in this young adult. Diagnostic Imaging Diagonstic Imaging: Xray Plain Films/CT/US/NM/MRI: chest Comments No acute abnormalities appreciated by the ER provider. Radiologist report not yet available. No evidence of pneumothorax or infiltrate. Departure Impression Primary Impression: Chest discomfort Additional Impression: Palpitations Disposition: 01 HOME, SELF-CARE Condition: Stable Departure-Patient Inst. Decision time for Depature: 23:59 Referrals: DERIAN JANE DO (PCP/Family) Primary Care Physician Patient Instructions: Palpitations ED Add. Discharge Instructions: Establish with a primary care provider as soon as possible. Drink plenty of clear liquids to stay well-hydrated. Limit alcoholic beverages to 2 or 3 drinks per week. Return to care if you have worsening symptoms despite following these instructions. All discharge instructions reviewed with patient and/or family. Voiced understa nding. MELISSA WHEATLEY MD November 22, 2022 23:12
[2022-11-22 23:17] LABS: BASOPHILS # (AUTO) 0.1 10^3/uL (0.0-0.1); BASOPHILS % (AUTO) 1 % (0-10); EOSINOPHILS # (AUTO) 0.3 10^3/uL (0.0-0.3); EOSINOPHILS % (AUTO) 3 % (0-10); HEMATOCRIT 43 % (40-54); HEMOGLOBIN 15.2 g/dL (13.3-17.7); LYMPHOCYTES # (AUTO) 2.7 10^3/uL (1.0-4.0); LYMPHOCYTES % (AUTO) 26 % (12-44); MEAN CORPUSCULAR HEMOGLOBIN 31 pg (25-34); MEAN CORPUSCULAR HGB CONC 35 g/dL (32-36); MEAN CORPUSCULAR VOLUME 86 fL (80-99); MEAN PLATELET VOLUME 9.9 fL (9.0-12.2); MONOCYTES % (AUTO) 10 % (0-12); NEUTROPHILS # (AUTO) 6.3 10^3/uL (1.8-7.8); NEUTROPHILS % (AUTO) 61 % (42-75); PLATELET COUNT 306 10^3/uL (130-400); WHITE BLOOD COUNT 10.4 10^3/uL (4.3-11.0)
[2022-11-22 23:20] LABS: ALBUMIN 5.1 GM/DL (3.2-4.5)
[2022-11-22 23:21] LABS: CHLORIDE 101 MMOL/L (98-107); POTASSIUM 3.9 MMOL/L (3.6-5.0); PROTHROMBIN TIME PATIENT 13.4 SEC (12.2-14.7); SODIUM 139 MMOL/L (135-145)
[2022-11-22 23:22] LABS: CALCIUM 10.1 MG/DL (8.5-10.1); PARTIAL THROMBOPLASTIN TIME 28 SEC (24-35)
[2022-11-22 23:23] LABS: GLUCOSE 84 MG/DL (70-105); TOTAL PROTEIN 8.1 GM/DL (6.4-8.2)
[2022-11-22 23:24] LABS: CARBON DIOXIDE 23 MMOL/L (21-32)
[2022-11-22 23:25] LABS: BILIRUBIN,TOTAL 0.7 MG/DL (0.1-1.0)
[2022-11-22 23:27] LABS: ALKALINE PHOSPHATASE 67 U/L (40-136); CREATININE SERUM 0.78 MG/DL (0.60-1.30); GFR ESTIMATED 128
[2022-11-22 23:28] LABS: BUN/CREATININE RATIO 9
[2022-11-22 23:30] LABS: ALANINE AMINOTRANSFERASE 18 U/L (0-55)
[2022-11-22 23:32] LABS: FIBRIN DEGRADATION PRODUCTS < 0.27 UG/ML (0.00-0.49)
[2022-11-23 00:06] VITALS: BP 121/96
--- NOTE | 2022-11-23 08:06 | Diagnostic Imaging Report ---
EXAMINATION: Chest 1 view HISTORY: Chest pain COMPARISON: 11/15/2021 FINDINGS: The lungs are clear without edema or pneumonia. No pleural effusion or pneumothorax. Heart size is normal. IMPRESSION: 1. Clear lungs. Dictated by: Dictated on workstation # [id number]
[2022-11-24] MEDS ORDERED: HYDR50TA76 PO (13:28)
[2022-11-24] MEDS ORDERED: ZOLP5TAB PO (13:28)
== END 2022-11-23 00:06 | disposition home or self-care (01) ==
LOC: EDUNIT# 22:55 → ER 22:57
DX: R07.89 Other chest pain (principal); R00.2 Palpitations; M79.661 Pain in right lower leg; F17.290 Nicotine dependence, other tobacco product, uncomplicated; Z28.310 Unvaccinated for COVID-19
CPT/HCPCS: 71045; 80053; 83735; 83874; 84484; 85025; 85379; 85610; 85730; 93041; 99284; G0480; 36415; 80320

== ENCOUNTER 2022-11-24 13:05 | Emergency (ER) | payer BC ==
[~2022-11-24] VITALS: Ht 175 cm; Wt 73.0 kg
[2022-11-24] MEDS ORDERED: ZOLP5TAB PO (13:28)
[2022-11-24] MEDS ORDERED: HYDR50TA76 PO (13:28)
--- NOTE | 2022-11-24 13:29 | ED General ---
General Chief Complaint: Psych/Social Disorder Stated Complaint: HIGH BLOOD PRESSURE | ANXIETY Nursing Triage Note: ARRIVED VIA AMB TO TRIAGE WITH COMPLAINTS OF ANXIETY THAT IS NOT GETTING BETTER. STATES HE HAD BEEN ON MEDICATION BUT STOPPED IN 3 MONTHS AGO TOOK ONE OF HIS PILLS YESTERDAY AFTER BEING SEEN AT DR ALLRED OFFICE AND BEING PRESCRIBED IT AGAIN. STATES SOMEONE TOOK HIS BP AT WORK AND IT WAS HIGH. DENIES THOUGHTS OF HARMING SELF OR OTHERS. Source of Information: Patient, Family (father) History of Present Illness Date Seen by Provider: November 24, 2022 Time Seen by Provider: 13:18 Initial Comments 22-year-old male he believes to be anxiety. He states he has pounding in his chest, bilateral hand and face tingling and some shortness of breath. He was seen here a few days ago and had a full work-up with labs, chest x-ray all of which were negative. He was started on sertraline. He just started taking it yesterday. Denies any fevers chills cough. Symptoms started abruptly. No new stressors. He does not use regular caffeine. No energy drinks. No herbal supplements or workout supplements. All other systems reviewed and negative except documented per HPI. Voice recognition software was used to help create this chart Allergies and Home Medications Allergies Coded Allergies: No Known Drug Allergies (Unverified , 03/05/13) Patient Home Medication List Home Medication List Reviewed: Yes Hydroxyzine HCl (Hydroxyzine HCl) 50 Mg Tablet, 50 MG PO TID Prescribed by: CLAUDIA OJEDA MD on 11/24/22 1328 Zolpidem Tartrate (Ambien) 5 Mg Tablet, 5 MG PO HS Prescribed by: CLAUDIA OJEDA MD on 11/24/22 1328 Discontinued Medications Amitriptyline Hcl (Elavil Tablet) 25 Mg Tab, 25 MG PO HS, (Reported) Discontinued Reason: No Longer Taking Entered as Reported by: TAE PETERSON on 07/30/14 1618 Last Action: Discontinued Hyoscyamine Sulfate (Hyoscyamine Sulfate 0.125 Mg) 0.125 Mg/Tab Tab.rapdis, 0.125 MG PO Q6H PRN for SPASMS Discontinued Reason: No Longer Taking Prescribed by: RENEE Delacruz COLTRIN on 06/14/13 1304 Last Action: Discontinued Pantoprazole Sodium (Protonix) 40 Mg Tablet.dr, 40 TAB PO BID Discontinued Reason: No Longer Taking Prescribed by: RENEE A COLTRIN on 06/14/13 1304 Last Action: Discontinued Polyethylene Glycol (Miralax 17 Gm Packet) 17 Gm Pack, 17 GM PO BID Discontinued Reason: No Longer Taking Prescribed by: RENEE A COLTRIN on 06/14/13 1304 Last Action: Discontinued Review of Systems Review of Systems Constitutional: see HPI Past Htlvmiv-Qumhfz-Qukyag Hx Patient Social History Tobacco Use?: Yes Use of E-Cig and/or Vaping dev: Yes E-Cig or Vaping type used: Nicotine Substance use?: No Alcohol Use?: Yes Alcohol Frequency: Daily Immunizations Up To Date Tetanus Booster (TDap): Less than 5yrs PED Vaccines UTD: Yes First/Initial COVID19 Vaccinat: NONE Second COVID19 Vaccination Baldemar: NONE Third COVID19 Vaccination Date: NONE Past Medical History Surgeries: No Respiratory: No Cardiac: No Neurological: No Reproductive Disorders: No Sexually Transmitted Disease: No HIV/AIDS: No Genitourinary: Yes Kidney Stones Gastrointestinal: No Ulcer, Irritable Bowel Musculoskeletal: Yes Chronic Back Pain Endocrine: No HEENT: No Cancer: No Psychosocial: No Family Medical History Chest pain 03 FATHER (CHEST PAIN) Family history: Cardiovascular disease 03 MOTHER (MITRAL VALVE PROLAPSE.) Family history: Gastrointestinal disease 09 BROTHER, Onset:Childhood (HERNIA REPAIR WHEN HE WAS 18 MONTHS. ) Seizure disorder 09 SISTER (SISTER HAD SEIZURE WHEN SHE WAS BORN. ) No Family History of: Patillas's disease Alcoholism Aphasia Cancer Cancer of colon Cataract Congenital heart disease Congestive heart failure Cystic fibrosis Dementia Dysphagia Family history: Alzheimer's disease Family history: Arthritis Family history: Asthma Family history: Breast disease Family history: Coronary thrombosis Family history: Diabetes mellitus Family history: Glaucoma Family history: Hypertension Family history: Osteoporosis Family history: Thyroid disorder Headache Hearing loss Heart disease Hereditary disease History of - anemia History of - respiratory disease History of drug abuse Human immunodeficiency virus (HIV) seropositivity Hypercholesterolemia Infertile Kidney disease Myocardial infarction Parkinson's disease Prostate cancer Psychotic disorder Stroke Tuberculosis Visual impairment Heart Disease, Cancer Physical Exam Vital Signs Vital Signs - First Documented 11/24/22 13:12 Temp 36.3 Pulse 94 Resp 16 B/P (MAP) 143/100 (114) Pulse Ox 100 O2 Delivery Room Air Capillary Refill : Less Than 3 Seconds Height, Weight, BMI Height: 5'7" Weight: 120lbs. 6.0oz. 54.641009zk; 23.00 BMI Method: General Appearance: No Apparent Distress, WD/WN, Anxious Eyes: Bilateral Eye Normal Inspection, Bilateral Eye PERRL, Bilateral Eye EOMI HEENT: PERRL/EOMI, Normal ENT Inspection, Pharynx Normal Neck: Full Range of Motion, Normal Inspection, Non Tender, Supple Respiratory: Chest Non Tender, Lungs Clear, Normal Breath Sounds, No Accessory Muscle Use, No Respiratory Distress Cardiovascular: Regular Rate, Rhythm, Normal Peripheral Pulses Gastrointestinal: Normal Bowel Sounds, No Organomegaly, No Pulsatile Mass, Non Tender, Soft Extremity: Normal Capillary Refill, Normal Range of Motion, Non Tender, No Calf Tenderness Neurologic/Psychiatric: Alert, Oriented x3, No Motor/Sensory Deficits Skin: Normal Color, Warm/Dry Progress/Results/Core Measures Suspected Sepsis SIRS Temperature: Pulse: 94 Respiratory Rate: 16 Blood Pressure 143 /100 Mean: 114 Results/Orders My Orders Orders - CLAUDIA OJEDA DO Hydroxyzine Cap/Tab (Vistaril) (11/24/22 13:30) Medications Given in ED Current Medications Medications Dose Ordered Sig/Chase Route Start Time Stop Time Status Last Admin Dose Admin Hydroxyzine Pamoate 50 mg ONCE ONCE PO 11/24/22 13:30 11/24/22 13:31 DC 11/24/22 13:38 50 MG Vital Signs/I&O 11/24/22 13:12 Temp 36.3 Pulse 94 Resp 16 B/P (MAP) 143/100 (114) Pulse Ox 100 O2 Delivery Room Air Capillary Refill : Less Than 3 Seconds Blood Pressure Mean: 114 Departure Communication (Admissions) Patient has a few days ago for similar symptoms. No indication for further lab testing or imaging at this time. Treat conservatively with p.o. We will also give him some Ambien for a few days as I think getting some rest might help as he states he has been only getting about 3 hours of sleep at night. Impression Primary Impression: Anxiety Disposition: 01 HOME, SELF-CARE Condition: Stable Departure-Patient Inst. Referrals: DERIAN JANE DO (PCP/Family) Primary Care Physician Patient Instructions: Anxiety, Adult ED Add. Discharge Instructions: Take hydroxyzine as needed for anxiety. Continue to take your sertraline as discussed. It may take a couple of months for this to work. Take the Ambien as needed at night only for sleep. To the emergency department for any severe concerns. Follow-up your primary doctor should your symptoms persist. All discharge instructions reviewed with patient and/or family. Voiced understanding. Scripts Zolpidem Tartrate (Ambien) 5 Mg Tablet 5 MG PO HS for 7 Days, #7 TAB Prov: CLAUDIA OJEDA DO 11/24/22 Hydroxyzine HCl (Hydroxyzine HCl) 50 Mg Tablet 50 MG PO TID for Anxiety for 30 Days, #90 TAB Prov: CLAUDIA OJEDA DO 11/24/22 CLAUDIA OJEDA DO November 24, 2022 13:29
[2022-11-24] MEDS ORDERED: hydrOXYzine (VISTARIL/ATARAX) 25 MG capsule/tablet PO ONE (13:30)
[2022-11-24 13:57] VITALS: BP 139/96
== END 2022-11-24 13:58 | disposition home or self-care (01) ==
LOC: EDUNIT# 13:05 → ER 13:07
DX: F41.9 Anxiety disorder, unspecified (principal); F17.290 Nicotine dependence, other tobacco product, uncomplicated; Z79.899 Other long term (current) drug therapy
CPT/HCPCS: 99283